=== PATIENT | male | born 1990 | race Caucasian/White ===

== ENCOUNTER → 2017-11-18 | Outpatient (CLI) | payer BC ==
--- NOTE | 2017-11-18 10:41 | RAD ---
History: Left lower quadrant pain for one week. Comparison: None. Findings: AP supine and upright views of the abdomen. No pneumoperitoneum is identified. Bowel gas pattern is nonspecific, without evidence of obstruction. Mild-moderate amount of colonic stool is present. Impression: Nonspecific bowel gas pattern. Electronically signed by: Maulik Toledo MD (11/18/2017 10:37 AM) [facility]
== END | disposition home or self-care (01) ==
LOC: PMG 09:31
PROVIDERS: ATTEND Physician Assistant
DX: R10.32 Left lower quadrant pain (principal)
CPT/HCPCS: 74021

== ENCOUNTER → 2019-01-26 | Outpatient (CLI) | payer BC ==
--- NOTE | 2019-01-28 07:58 | RAD ---
EXAM: Abdomen sonogram; scrotal sonogram. HISTORY: Pain. TECHNIQUE: Sonographic imaging of the abdomen and Moreau scale and color Doppler sonographic imaging of the scrotum with spectral waveform analysis was performed. COMPARISON: None. FINDINGS: The visualized portions of the liver and right kidney are unremarkable. The right ventral abdominal wall at the site of reported pain is unremarkable. No hernia is seen. No or collection or mass is seen. The testes are normal in size and demonstrate normal symmetric blood flow. No focal testicular parenchymal lesion is seen. The epididymides are unremarkable. There are small bilateral hydroceles. No varicocele seen. IMPRESSION: 1. Small bilateral hydroceles. 2. Otherwise, unremarkable sonographic imaging of the scrotum and right ventral abdominal wall at the site of palpable concern. Electronically signed by: Anne Oliveira MD (01/26/2019 1:59 PM) [id number]
== END | disposition home or self-care (01) ==
LOC: US 11:26
PROVIDERS: ATTEND Physician Assistant
DX: N43.2 Other hydrocele (principal)
CPT/HCPCS: 76705; 76870